=== PATIENT | male | born 1955 | race Caucasian/White ===

== ENCOUNTER 2023-12-07 13:48 | Inpatient (IN) | payer MEDICARE, OTHER ==
[~2023-12-07] VITALS: Ht 172.7 cm; Wt 81.3 kg
[2023-12-07 14:30] VITALS: BP 167/85; TEMP 97.9; O2SAT 94
[2023-12-07] MEDS ORDERED: MAG HYDROX/AL HYDROX/SIMETH 30 ML UDC PO PRN (14:30)
[2023-12-07] MEDS: BLOOD SUGAR DIAGNOSTIC 1 EACH STRIP IN ONE (14:56)
[2023-12-07] MEDS ORDERED: HYDR12.55 PO (15:58)
[2023-12-07] MEDS ORDERED: OXYC5TAB3 PO (15:58)
[2023-12-07] MEDS ORDERED: SENN-261 PO (15:58)
[2023-12-07] MEDS ORDERED: RIVA10TA PO (15:58)
[2023-12-07] MEDS ORDERED: LISI20TA31 PO (15:58)
[2023-12-07] MEDS ORDERED: DOCU100C36 PO (15:58)
[2023-12-07] MEDS ORDERED: OXYC10TA49 PO (15:58)
[2023-12-07] MEDS ORDERED: CHLO25TA2 PO (15:58)
[2023-12-07] MEDS ORDERED: ARIP20TA4 PO (15:58)
[2023-12-07] MEDS ORDERED: ZIPR20CA2 PO (15:58)
[2023-12-07] MEDS: DOCUSATE SODIUM 100 MG CAPSULE PO SCH (17:00)
[2023-12-07] MEDS ORDERED: ZIPRASIDONE 20 MG CAPSULE PO SCH (17:00)
[2023-12-07] MEDS ORDERED: SENNOSIDES 8.6 MG TABLET PO PRN (17:00)
[2023-12-07 20:54] VITALS: BP 148/80; TEMP 98.4; O2SAT 97
[2023-12-08] MEDS: TEMAZEPAM 15 MG CAPSULE PO PRN (00:30)
[2023-12-08 08:00] VITALS: BP 157/97; TEMP 98.6; O2SAT 97
[2023-12-08 08:00] LABS: ALBUMIN 3.3 g/dL (3.4-5.0); BILIRUBIN,TOTAL 0.4 mg/dL (0.2-1.0); CALCIUM, SERUM 8.8 mg/dL (8.5-10.1); CREATININE 1.3 mg/dL (0.6-1.3); POTASSIUM 4.1 mmol/L (3.5-5.1); TOTAL PROTEIN, SERUM 7.9 g/dL (6.4-8.2)
[2023-12-08 08:02] LABS: CHOLESTEROL 142 mg/dL (<200); HDL CHOLESTEROL 43 mg/dL (40-60); LDL 79 mg/dL (0-99); TRIGLYCERIDES 112 mg/dL (30-150)
[2023-12-08 08:08] LABS: CREATININE 1.3 mg/dL (0.6-1.3)
[2023-12-08] MEDS: ZIPRASIDONE 20 MG CAPSULE PO SCH (08:55)
[2023-12-08] MEDS: RIVAROXABAN 10 MG TABLET PO SCH (08:57)
[2023-12-08] MEDS: ARIPIPRAZOLE 5 MG TABLET PO SCH (08:59)
[2023-12-08] MEDS ORDERED: Medication Not On Formulary EA (Aripiprazole (Abilify) 20 MG) PO SCH (09:00)
[2023-12-08] MEDS ORDERED: Medication Not On Formulary EA (Chlorthalidone 25 MG) PO SCH (09:00)
[2023-12-08] MEDS: LISINOPRIL (20MG) 20 MG TABLET PO SCH (09:23)
[2023-12-08 16:41] VITALS: BP 142/82; TEMP 98.4; O2SAT 98
[2023-12-08 20:00] VITALS: BP 153/82; TEMP 98.4; O2SAT 98
[2023-12-09 16:00] VITALS: BP 162/78; TEMP 97.9; O2SAT 98
[2023-12-09 20:00] VITALS: BP 156/80; TEMP 97.8; O2SAT 98
[2023-12-10 08:00] VITALS: BP 149/95; TEMP 98; O2SAT 100
[2023-12-10 16:00] VITALS: BP 142/71; TEMP 97.5; O2SAT 99
[2023-12-10 20:00] VITALS: BP 142/91; TEMP 98.3; O2SAT 99
[2023-12-11 08:00] VITALS: BP 156/80; TEMP 97.9; O2SAT 97
[2023-12-11 16:00] VITALS: BP 135/80; TEMP 98.5; O2SAT 98
[2023-12-11 20:00] VITALS: BP 153/96; TEMP 98.1; O2SAT 98
[2023-12-12 08:00] VITALS: BP 151/80; TEMP 98.1; O2SAT 99
[2023-12-12] MEDS: clonazePAM 0.5 MG TABLET PO PRN (12:33)
[2023-12-12 16:00] VITALS: BP 165/90; TEMP 98.7; O2SAT 98
[2023-12-12 21:07] VITALS: BP 149/87; TEMP 98; O2SAT 96
[2023-12-13 08:00] VITALS: BP 158/76; TEMP 98.2; O2SAT 97
[2023-12-13] MEDS: MAGNESIUM HYDROXIDE 30 ML UDC PO PRN (09:01)
[2023-12-13 16:00] VITALS: BP 165/91; TEMP 98; O2SAT 97
[2023-12-13 20:42] VITALS: BP 144/76; TEMP 98.2; O2SAT 95
[2023-12-14] MEDS: ACETAMINOPHEN 325 MG TABLET PO PRN (05:08)
[2023-12-14 08:00] VITALS: BP 150/90; TEMP 98.1; O2SAT 98
[2023-12-14 08:41] VITALS: BP 150/90
== END 2023-12-14 13:20 | DRG 885 ==
LOC: GPS 13:51
PROVIDERS: ADMIT Nurse Practitioner Psychiatric/Mental Health
DX: F20.9 Schizophrenia, unspecified (principal); G93.41 Metabolic encephalopathy; E44.1 Mild protein-calorie malnutrition; I10 Essential (primary) hypertension; M81.0 Age-related osteoporosis without current pathological fracture; Z79.01 Long term (current) use of anticoagulants; Z79.899 Other long term (current) drug therapy; R79.89 Other specified abnormal findings of blood chemistry; E88.09 Other disorders of plasma-protein metabolism, not elsewhere classified; F10.10 Alcohol abuse, uncomplicated; Y90.9 Presence of alcohol in blood, level not specified; F31.9 Bipolar disorder, unspecified; F15.10 Other stimulant abuse, uncomplicated; F17.210 Nicotine dependence, cigarettes, uncomplicated; F12.10 Cannabis abuse, uncomplicated
CPT/HCPCS: 36415; 80048-TC; 80053-TC; 80061-TC; 82565-TC; 82962-TC